=== PATIENT | female | born 1980 | race African-American/Black ===

== ENCOUNTER 2019-08-30 12:50 | Outpatient (CLI) | payer BC ==
[~2019-08-30] VITALS: Ht 188 cm; Wt 94.8 kg
[~2019-08-30 12:50] MED LIST: BCP TD; FLEXERIL10 MG PO; GLUCOPHAGE PO; LOMOTIL 0.025 M1 TAB PO; MEDROL 4MG DOSPA4 MG PO; MULTIPLE VITAMI1 CAP PO; NORCO 325 MG-51 TAB PO; PRENATAL VITAMI1 TA5 PO; PROZAC40 MG PO; VITAMIN D1000 IU PO; ZOFRAN 4MG T4 MG/TAB PO
[2019-08-30 15:07] VITALS: BP 110/68; PULSE 72; TEMP 97.9
[2019-08-30] MEDS ORDERED: AMOXICILLIN 50500 MG PO (15:15)
[2019-08-30] MEDS ORDERED: LIPITOR20 MG PO ×2 (15:16→15:17)
[2019-08-30] MEDS ORDERED: GLUCOPHAGE500 MG/TAB PO (15:17)
[2019-08-30] MEDS ORDERED: EFFEXOR-XR150 MG PO (15:18)
[2019-08-30] MEDS ORDERED: SYNTHROID 0.0.025 MG PO (15:18)
[2019-08-30] MEDS ORDERED: NIKKI1 TAB PO (15:19)
[2019-08-30] MEDS ORDERED: BUSPAR5 MG PO (15:19)
[2019-08-30] MEDS ORDERED: PROVENTIL0.09 MG/A1 IH (15:19)
[2019-08-30] MEDS ORDERED: AMITRIPTYLINE H50 M1 PO (15:20)
[2019-08-30] MEDS ORDERED: KLONOPIN 0.5MG0.5 MG PO (15:21)
[2019-08-30] MEDS ORDERED: PRINZIDE 25 MG-1 TAB PO (15:21)
[2019-08-30] MEDS ORDERED: GLUCOTROL10 MG PO (15:22)
== END 2019-08-30 15:15 | disposition home or self-care (01) ==
LOC: EUO 12:50
DX: E83.42 Hypomagnesemia (principal)
CPT/HCPCS: J3475

== ENCOUNTER → 2020-02-01 | Outpatient (CLI) | payer BC ==
[~2020-02-01] MED LIST changes: +AMITRIPTYLINE H50 M1 PO; +AMOXICILLIN 50500 MG PO; +BUSPAR5 MG PO; +EFFEXOR-XR150 MG PO; +GLUCOPHAGE500 MG/TAB PO; +GLUCOTROL10 MG PO; +KLONOPIN 0.5MG0.5 MG PO; +LIPITOR20 MG PO; +NIKKI1 TAB PO; +PRINZIDE 25 MG-1 TAB PO; +PROVENTIL0.09 MG/A1 IH; +SYNTHROID 0.0.025 MG PO
== END ==
LOC: MC.RAD 13:55
DX: Z12.31 Encounter for screening mammogram for malignant neoplasm of breast (principal)

== ENCOUNTER → 2021-03-02 | Outpatient (CLI) | payer BC | LOC: MC.RAD 13:52 | DX: Z12.31 Encounter for screening mammogram for malignant neoplasm of breast (principal) ==

== ENCOUNTER → 2023-04-18 | Outpatient (CLI) | payer BC | LOC: MC.RAD 13:55 | DX: Z12.31 Encounter for screening mammogram for malignant neoplasm of breast (principal) ==